=== PATIENT | female | born 1935 | race Caucasian/White ===

== ENCOUNTER 2016-11-12 20:32 | Inpatient (IN) | payer MEDICARE ==
[~2016-11-12] VITALS: Ht 165.1 cm; Wt 60.6 kg
[2016-11-13] MEDS ORDERED: ASPIRIN 81 MG CHEW TAB ONE (01:11)
[2016-11-13] MEDS ORDERED: DEXTROSE 50% SYRINGE 50 ML IV PRN (02:55)
[2016-11-13] MEDS ORDERED: Atorvastatin 20 MG TAB PO SCH ×2 (02:55→21:00)
[2016-11-13] MEDS ORDERED: ACETAMINOPHEN 325 MG TAB PO PRN (02:55)
[2016-11-13] MEDS ORDERED: SALINE FLUSH 10 ML FLUSH PRN (02:55)
[2016-11-13] MEDS ORDERED: GLUCAGON 1 MG VIAL IM PRN (02:55)
[2016-11-13 03:30] VITALS: BP_SYST 152; RESP 18; TEMP 97.2; Ht 165.1 cm; Wt 60.6 kg
[2016-11-13] MEDS: SODIUM CHLORIDE 0.9% FLUSH BAG 500 ML IV SCH ×2 (05:41→23:05)
[2016-11-13 08:36] VITALS: BP_SYST 141; RESP 18; TEMP 97.6
[2016-11-13] MEDS: Aspirin 325 MG TAB PO SCH (08:51)
[2016-11-13] MEDS: VENLAFAXINE HCL 75 MG TAB PO SCH (08:51)
[2016-11-13] MEDS: ENOXAPARIN 40 MG/0.4 ML SYR SUBQ SCH (08:52)
[2016-11-13] MEDS: SALINE FLUSH 10 ML FLUSH SCH ×2 (08:52→20:41)
[2016-11-13] MEDS ORDERED: BACITRACIN 50,000 UNITS INJ IRRIG ONE (10:37)
[2016-11-13] MEDS ORDERED: GELATIN SPONGE 100 CM2 TOPICAL ONE (10:37)
[2016-11-13] MEDS ORDERED: FENTANYL 100 MCG/2 ML AMP ONE (10:54)
[2016-11-13] MEDS ORDERED: ONDANSETRON 4 MG VIAL ONE (10:54)
[2016-11-13] MEDS ORDERED: PHENYLEPHRINE 10 MG/ML VIAL ONE (10:54)
[2016-11-13] MEDS ORDERED: ROCURONIUM 50 MG VIAL IV ONE (10:54)
[2016-11-13] MEDS ORDERED: PROPOFOL 20 ML PER ML IV ONE (10:54)
[2016-11-13] MEDS ORDERED: SUGAMMADEX 200 MG/2 ML VIAL IV ONE (10:54)
[2016-11-13 11:36] VITALS: BP_SYST 133; RESP 18; TEMP 97.8
[2016-11-13 15:31] VITALS: BP_SYST 128; RESP 18; TEMP 97.6
[2016-11-13] MEDS ORDERED: OPTIRAY 350 100 ML VIAL HMH IV ONE (16:56)
[2016-11-13 19:43] VITALS: BP_SYST 122; RESP 18; TEMP 98.5
[2016-11-14] VITALS (16 sets, daily range): BP systolic 96–144; RESP 11–23; TEMP 97.6–98.5
[2016-11-14] MEDS ORDERED: CEFAZOLIN 1,000 MG in DEXTROSE 5% 50 ML IV ONE (08:05)
[2016-11-14] MEDS ORDERED: LIDOCAINE 1% BUFFERED 1 ML SYR INTRADERM PRN (08:40)
[2016-11-14] MEDS ORDERED: LACT RINGERS 1,000 ML IV SCH (08:40)
[2016-11-14] MEDS ORDERED: MIDAZOLAM 2 MG/2 ML INJ IV ONE (08:40)
[2016-11-14] MEDS: Aspirin 325 MG TAB PO SCH ×2 (09:00→10:19)
[2016-11-14] MEDS: ENOXAPARIN 40 MG/0.4 ML SYR SUBQ SCH (09:00)
[2016-11-14] MEDS: SALINE FLUSH 10 ML FLUSH SCH ×2 (09:18→20:49)
[2016-11-14] MEDS: clonazePAM 0.5 MG TAB PO PRN (10:19)
[2016-11-14] MEDS: VENLAFAXINE HCL 75 MG TAB PO SCH (10:19)
[2016-11-14] MEDS ORDERED: BUPIVACA/EPI 0.25% PF 30ML NERVEBLOCK ONE (10:37)
[2016-11-14] MEDS ORDERED: LIDOCAINE 1% 20ML NERVEBLOCK ONE (10:37)
[2016-11-14] MEDS ORDERED: PROTAMINE 50 MG/5 ML VIAL IV ONE (10:37)
[2016-11-14] MEDS ORDERED: THROMBIN SOLN 20000 UNITS KIT TOPICAL ONE (10:37)
[2016-11-14] MEDS ORDERED: MORPHINE 2 MG/ML SYR IV PRN ×2 (14:45→15:55)
[2016-11-14] MEDS ORDERED: DILAUDID 1 MG/ML AMP IV PRN ×2 (14:45→15:55)
[2016-11-14] MEDS ORDERED: OXYCODONE 5 MG TAB PO PRN ×2 (14:45→15:55)
[2016-11-14] MEDS ORDERED: MORPHINE 4 MG/ML SYR IV PRN ×2 (14:45→15:55)
[2016-11-14] MEDS ORDERED: MEPERIDINE 25 MG/ML IV PRN ×2 (14:45→15:55)
[2016-11-14] MEDS ORDERED: ONDANSETRON 4 MG VIAL IV PRN ×3 (14:45→16:45)
[2016-11-14] MEDS ORDERED: DOPamine PREMIX 250 ML IV SCH (16:45)
[2016-11-14] MEDS ORDERED: NITROGLYCERIN 50 MG/250 ML 250 ML IV SCH (16:45)
[2016-11-14] MEDS ORDERED: SALINE FLUSH 10 ML FLUSH PRN (16:45)
[2016-11-14] MEDS ORDERED: ACETAMINOPHEN 325 MG TAB PO PRN (16:45)
[2016-11-14] MEDS: D5-1/2-NS W/KCL 20MEQ/L 1,000 ML IV SCH (17:08)
[2016-11-14] MEDS ORDERED: MISSING DOSE XX ONE (20:45)
[2016-11-14] MEDS: Atorvastatin 40 MG TAB PO SCH (20:49)
[2016-11-14] MEDS: CEFAZOLIN 1,000 MG in DEXTROSE 5% 50 ML IV SCH (21:15)
[2016-11-15] VITALS (24 sets, daily range): BP systolic 102–164; RESP 13–25; TEMP 98.2–98.7
[2016-11-15] MEDS: D5-1/2-NS W/KCL 20MEQ/L 1,000 ML IV SCH (04:13)
[2016-11-15] MEDS: SODIUM CHLORIDE 0.9% FLUSH BAG 500 ML IV SCH (06:00)
[2016-11-15] MEDS: SALINE FLUSH 10 ML FLUSH SCH ×2 (07:21→20:38)
[2016-11-15] MEDS ORDERED: MISSING DOSE XX ONE (07:40)
[2016-11-15] MEDS: CEFAZOLIN 1,000 MG in DEXTROSE 5% 50 ML IV SCH (07:47)
[2016-11-15] MEDS: VENLAFAXINE HCL 75 MG TAB PO SCH (08:36)
[2016-11-15] MEDS: clonazePAM 0.5 MG TAB PO PRN (08:36)
[2016-11-15] MEDS: Aspirin 325 MG TAB PO SCH (08:36)
[2016-11-15] MEDS: ENOXAPARIN 40 MG/0.4 ML SYR SUBQ SCH (08:37)
[2016-11-15] MEDS: Atorvastatin 40 MG TAB PO SCH (20:39)
[2016-11-16] VITALS (15 sets, daily range): BP systolic 120–164; RESP 14–25; TEMP 98.1–98.6
[2016-11-16] MEDS: SODIUM CHLORIDE 0.9% FLUSH BAG 500 ML IV SCH (05:44)
[2016-11-16] MEDS: SALINE FLUSH 10 ML FLUSH SCH (07:37)
[2016-11-16] MEDS ORDERED: LISINOPRIL 10 MG TAB PO SCH (09:00)
[2016-11-16] MEDS ORDERED: amLODIPine 5 MG TAB PO SCH (09:00)
[2016-11-16] MEDS: clonazePAM 0.5 MG TAB PO PRN (09:07)
[2016-11-16] MEDS: VENLAFAXINE HCL 75 MG TAB PO SCH (09:07)
[2016-11-16] MEDS: Aspirin 325 MG TAB PO SCH (09:07)
[2016-11-16] MEDS: ENOXAPARIN 40 MG/0.4 ML SYR SUBQ SCH (09:08)
== END 2016-11-16 14:35 | disposition home or self-care (01) | DRG 38 ==
LOC: ENRESERVTM → ENRESERVDT → ER 20:32 → EMR 20:33 → UNDOADMOB 11-13 02:24 → PCU2 11-13 03:19 → EMR 11-13 03:19 → ENPENDDIS 11-13 09:49 → OBSVTOIN 11-13 09:49 → ICU 11-14 16:51
PROVIDERS: ADMIT Internal Medicine; ATTEND Internal Medicine
PROC: 03UJ0KZ Supplement Left Common Carotid Artery with Nonautologous Tissue Substitute, Open Approach (ICD-10-PCS; 2016-11-14)
PROC: 03CL0ZZ Extirpation of Matter from Left Internal Carotid Artery, Open Approach (ICD-10-PCS; principal; 2016-11-14 14:15)
CPT/HCPCS: 36415; 70450; 70498; 70551; 71010; 71020; 80048; 80053; 80061; 81001; 82553; 82947; 84484; 85025; 85610; 85730; 87088; 93005; 93306; 93880; 99220; 99223; 99232; 99239